=== PATIENT | male | born 1980 | race Caucasian/White ===

== ENCOUNTER 2017-07-05 11:33 | Emergency (ER) | payer OTHER ==
[~2017-07-05] VITALS: Ht 180.3 cm; Wt 81.6 kg
[~2017-07-05 11:33] MED LIST: NO REPORTED MEDS
--- NOTE | 2017-07-05 11:48 | NUR ---
bibra and lapd due syncopal episde. Patient arrived aao4. In no distress. Patient is refusing any care offered. md marroquin
--- NOTE | 2017-07-05 11:54 | NUR ---
patient discharged in custody. stable. okay to book.
== END 2017-07-05 11:55 | disposition home or self-care (01) ==
LOC: ER 11:35
DX: R55 Syncope and collapse (principal); F12.90 Cannabis use, unspecified, uncomplicated; F20.9 Schizophrenia, unspecified; F17.200 Nicotine dependence, unspecified, uncomplicated; Z88.8 Allergy status to other drugs, medicaments and biological substances; Z59.0 Homelessness
CPT/HCPCS: A4606; Z7610

== ENCOUNTER 2018-04-06 09:34 | Emergency (ER) | payer MEDICAID, OTHER ==
[~2018-04-06] VITALS: Ht 167.6 cm; Wt 65.8 kg
[2018-04-06 09:53] VITALS: BP 154/89
--- NOTE | 2018-04-06 10:49 | NUR ---
PT REFUSING IV START AND BLOOD DRAW. ERMD AWARE.
[2018-04-06] MEDS: IV NS 0.9% 1,000 ML BAG IV ONE (11:12)
[2018-04-06] MEDS: ONDANSETRON HCL/PF 4 MG/2 ML VIAL IVP ONE (11:16)
--- NOTE | 2018-04-06 11:18 | NUR ---
PT REFUSED ALL MEDS AND TX
--- NOTE | 2018-04-06 11:18 | NUR ---
DPatient discharged to home in stable condition. Written and verbal after care instructions given. Patient verbalizes understanding of instruction.
== END 2018-04-06 11:22 | disposition home or self-care (01) ==
LOC: ER 09:35
DX: R19.7 Diarrhea, unspecified (principal); R14.0 Abdominal distension (gaseous); R11.0 Nausea; Z88.8 Allergy status to other drugs, medicaments and biological substances
CPT/HCPCS: Z7502